=== PATIENT | male | born 1970 | race Caucasian/White ===

== ENCOUNTER 2017-03-29 17:22 | Emergency (ER) | payer BC ==
[2017-03-29] MEDS ORDERED: oxyCODONE/Acetamin 5/325 MG* TAB PO ONE (18:58)
--- NOTE | 2017-03-29 20:04 | RAD ---
Indication: LEFT chest pain. Fall. Pain on inspiration. Comparison: No relevant prior exams available on the [facility] [facility] for comparison. Technique: Dual energy PA chest and 3 view dedicated LEFT unilateral rib series. Report: Clear lungs and pleural spaces. Negative for pneumothorax. The heart, pulmonary vasculature, and mediastinal contours are unremarkable. Unremarkable osseous structures and soft tissue contours. Inferior skin marker noted indicating the site of clinical concern. No acute rib fracture evident. Healed fracture of the LEFT sixth rib noted laterally. Unremarkable soft tissue contours. IMPRESSION: Negative for acute rib fracture or pneumothorax.
--- NOTE | 2017-03-29 20:25 | ED ---
Adult Trauma - HPI Summary HPI Summary: 47-year-old male presents with left sided lower rib pain today. He states he slipped and that black ice and fell backwards landing on his left ribs and his head. He denies any loss consciousness. Denies any nausea or vomiting. He denies any change in vision. He denies any dizziness. He admits to headache. He is not on blood thinners. He states pain is greatest when he moves a certain way or when he takes the breath. He denies any blood in his urine or stool. He denies any abdominal pain. He denies any chest pain. He denies any neck pain. - History of Current Complaint Chief Complaint: EDBackInjuryPain Stated Complaint: FALL/RIB PAIN Time Seen by Provider: 03/29/17 18:26 Pain Intensity: 7 - Allergy/Home Medications Allergies/Adverse Reactions: Allergies Allergy/AdvReac Type Severity Reaction Status Date / Time No Known Allergies Allergy Verified 03/29/17 18:30 PMH/Surg Hx/FS Hx/Imm Hx Endocrine/Hematology History: Denies: Hx Anticoagulant Therapy Cardiovascular History: Denies: Hx Myocardial Infarction Infectious Disease History: No Infectious Disease History: Denies: Traveled Outside the [place] in Last 30 Days - Family History Known Family History: Positive: Hypertension - Social History Alcohol Use: Occasionally Substance Use Type: Reports: None Smoking Status (MU): Never Smoked Tobacco Review of Systems Negative: Fever Negative: Chest Pain Positive: Other - left rib pain. Negative: Shortness Of Breath Positive: Headache All Other Systems Reviewed And Are Negative: Yes Physical Exam Triage Information Reviewed: Yes Vital Signs On Initial Exam: Initial Vitals Temp Pulse Resp BP Pulse Ox 98.3 F 97 15 128/90 98 03/29/17 17:31 03/29/17 17:31 03/29/17 17:31 03/29/17 17:31 03/29/17 17:31 Vital Signs Reviewed: Yes Appearance: Positive: Well-Appearing Skin: Positive: Warm, Dry Head/Face: Positive: Normal Head/Face Inspection, Other - no step off, mendoza sign, raccoon mendoza sign Eyes: Positive: Normal, EOMI, J CARLOS, Conjunctiva Clear ENT: Positive: Normal ENT inspection, Pharynx normal, TMs normal Respiratory/Lung Sounds: Positive: Clear to Auscultation, Breath Sounds Present Cardiovascular: Positive: Normal, RRR Abdomen Description: Positive: Nontender, Soft Bowel Sounds: Positive: Present Musculoskeletal: Positive: Normal Neurological: Positive: Normal Psychiatric: Positive: Normal Diagnostics - Vital Signs Vital Signs Temp Pulse Resp BP Pulse Ox 03/29/17 19:25 19 03/29/17 17:31 98.3 F 97 15 128/90 98 - Laboratory Lab Statement: Any lab studies that have been ordered have been reviewed, and results considered in the medical decision making process. - Radiology ribs Xray Interpretation: No Acute Changes Radiology Interpretation Completed By: Radiologist Adult Trauma Course/Dx - Course Course Of Treatment: 47-year-old male presents with left sided lower rib pain today. He states he slipped and that black ice and fell backwards landing on his left ribs and his head. He denies any loss consciousness. Denies any nausea or vomiting. He denies any change in vision. He denies any dizziness. He admits to headache. He is not on blood thinners. He states pain is greatest when he moves a certain way or when he takes the breath. He denies any blood in his urine or stool. He denies any abdominal pain. He denies any chest pain. He denies any neck pain. on exam tenderness over left posterior ribs. normal neuro exam. according to [place] rules no imaging needed. xray shows no fracture. will give short course of pain medication and have follow up with primary. patient understand and agrees with plan. - Diagnoses Differential Diagnosis/HQI/PQRI: Positive: Fracture, Sprain, Strain Provider Diagnoses: Head injury, Contusion of rib on left side Discharge - Discharge Plan Condition: Good Disposition: HOME Prescriptions: oxyCODONE/Acetamin 5/325 MG* [Percocet 5/325 TAB*] 1 tab PO Q6H PRN #8 tab MDD 4 PRN Reason: Pain Patient Education Materials: Head Injury (ED), Rib Contusion (ED) Referrals: Eddie Petersen MD [Primary Care Provider] - Additional Instructions: Take deep breath throughout the day Take Ibuprofen or Tylenol for pain every 6 hours, use narcotic for break through pain Follow up with primary care physician within 5 days Return to ED if develop new productive cough, fever, or any new or worsening symptoms
[2017-03-29 20:37] VITALS: BP 122/75
== END 2017-03-29 20:49 | disposition home or self-care (01) ==
LOC: ED 17:22
DX: S20.212A Contusion of left front wall of thorax, initial encounter (principal); S09.90XA Unspecified injury of head, initial encounter; W00.0XXA Fall on same level due to ice and snow, initial encounter; Y92.9 Unspecified place or not applicable
CPT/HCPCS: 99281; A9270-GY